=== PATIENT | female | born 1955 | race Two or more races ===

== ENCOUNTER 2017-07-13 07:13 | Emergency (ER) | payer SELFPAY ==
[2017-07-13] MEDS ORDERED: NS 1,000 ML IV ONE (07:16)
[2017-07-13] MEDS ORDERED: HYDROmorphONE/DILAUDID 1 MG/ML INJ IVP ONE (07:16)
--- NOTE | 2017-07-13 07:17 | EDPHY ---
HPI/HX/ROS/PE/MDM Narrative: CHIEF COMPLAINT: Back spasm HPI: The patient is a 62 y/o female arriving via EMS complaining of severe back spasm onset on Wednesday, about 3 days ago. She describes the sensation of "seizing" located along her lower back and worse on the left side. Her pain is sometimes worse with movement, but also present at rest. She cannot tell if it' s worse in a seated position and it's unclear if the pain ever resolves completely or not. She has been taking ibuprofen throughout the weekend with minimal relief and decided to call EMS for help this morning. EMS administered 5mg IV Valium en route with some improvement in patient's spasms, but she continues to complain of severe pain on arrival here. She denies preceding trauma, recent illness, weakness, paresthesias, incontinence, urinary symptoms, fever, or other complaints. REVIEW OF SYSTEMS: Aside from elements discussed in the HPI, a comprehensive 10-point review of systems was reviewed and is negative. PMH: Hypothyroidism, basal cell carcinoma with excision, hernia surgery SOCIAL HISTORY: Employed as a teacher. Lives in [place]. Single. PHYSICAL EXAM: General:Patient is alert, appears uncomfortable. ENT:Eyes are normal to inspection. ENT inspection normal. Neck: Normal inspection. Full range of motion. Respiratory:No respiratory distress. Breath sounds normal bilaterally. Cardiovascular: Regular rate and rhythm. Strong peripheral pulses. Normal cap refill. Abdomen:The abdomen is nontender to palpation. There are no peritoneal signs. No pulsatile mass. Back: Normal to inspection. No tenderness to palpation. Skin: Normal color. No rash. Warm and dry. Extremities: Normal appearance. Full range of motion. Neuro: Oriented x3. Normal motor function. Normal sensory function. 5/5 strength BLEs to DF, PF, knee ext and flexion. Normal LTS. No saddle anesthesia. ED Course: This is a 62 y/o female who presents with 3-days of severe back spasm. No report of recent trauma. She has a normal neurologic exam and I do not suspect acute cauda equina syndrome requiring emergent MRI imaging. Her level of pain that seems to be waxing and waning during my assessment could indicate a kidney stone or other intraabdominal process. Musculoskeletal cause also a possibility. Plan for IV, labs, UA, abdominal CT, and symptom management. 1mg IV Dilaudid and 1L IV NS administered. Reassessed patient. Her pain has improved significantly. Patient has been discussing cost of CT with her insurance for over an hour, but has finally decided she would like to proceed with it. CT Abdomen/Pelvis shows constipation and likely benign calcified splenic cyst per Dr. Pulliam, radiology. Reassessed patient and discussed findings. Exam remains benign. Patient will be discharged with Medrol script and standard back pain and constipation care instructions. Recommended follow up with back specialist in a few days. Return precautions discussed. She is comfortable with this plan. MDM: This patient presents with midline lumbar spine pain with associated back spasm , made worse with movement. We performed an extensive workup to rule out other causes of back pain, and there is no evidence of nephrolithiasis, renal mass, diverticulitis, AAA or fracture. The patient has no risk factors for epidural abscess or deep space infection. There are no signs of cauda equina or other spinal emergency. I think she is appropriate for outpatient management with steroids, muscle relaxants and pain medication, followed by close follow-up with NSG for likely MRI. She agrees with this plan. We discussed strict return precautions. - Data Points Imaging Results: Imaging Impressions Abdomen/Pelvis CT 07/13/17 07:56 Impression: 1. Constipation. 2. Likely benign 4.5-cm splenic calcification, most likely related to a cyst. Consider CT follow up in 3 to 6 months. 3. Bladder distention. 4. Additional findings as above. Findings and recommendations discussed with arcadio Perera for Dr. Pérez Mckenzie on July 13, 2017 at 1115 hours. Attention: This CT examination is specifically designed to evaluate patients who are clinically suspected of having acute obstructive uropathy. This examination does not use radiographic contrast, and as such, provides only a limited evaluation of the abdomen, pelvis and retroperitoneum. If there is further clinical suspicion for pathological conditions other than obstructive uropathy, a complete CT evaluation of the abdomen and pelvis utilizing intravenous and oral contrast should be considered. Imaging: Discussed imaging studies w/ molder pipe covering Radiologist, I viewed and interpreted images myself Laboratory Results: Laboratory Results 07/13/17 08:30 07/13/17 08:30 07/13/17 07/13/17 08:30 08:30 WBC 8.61 10^3/uL 10^3/uL (3.80-9.50) RBC 4.04 10^6/uL L 10^6/uL (4.18-5.33) Hgb 12.2 g/dL L g/dL (12.6-16.3) Hct 35.5 % L % (38.0-47.0) MCV 87.9 fL fL (81.5-99.8) MCH 30.2 pg pg (27.9-34.1) MCHC 34.4 g/dL g/dL (32.4-36.7) RDW 13.7 % % (11.5-15.2) Plt Count 234 10^3/uL 10^3/uL (150-400) MPV 9.0 fL fL (8.7-11.7) Neut % (Auto) 77.1 % H % (39.3-74.2) Lymph % (Auto) 13.9 % L % (15.0-45.0) [place] % (Auto) 7.8 % % (4.5-13.0) Eos % (Auto) 0.5 % L % (0.6-7.6) Baso % (Auto) 0.2 % L % (0.3-1.7) Nucleat RBC Rel Count 0.0 % % (0.0-0.2) Absolute Neuts (auto) 6.64 10^3/uL H 10^3/uL (1.70-6.50) Absolute Lymphs (auto) 1.20 10^3/uL 10^3/uL (1.00-3.00) Absolute Monos (auto) 0.67 10^3/uL 10^3/uL (0.30-0.80) Absolute Eos (auto) 0.04 10^3/uL 10^3/uL (0.03-0.40) Absolute Basos (auto) 0.02 10^3/uL 10^3/uL (0.02-0.10) Absolute Nucleated RBC 0.00 10^3/uL 10^3/uL (0-0.01) Immature Gran % 0.5 % % (0.0-1.1) Immature Gran # 0.04 10^3/uL 10^3/uL (0.00-0.10) Sodium 141 mEq/L mEq/L (135-145) Potassium 3.5 mEq/L mEq/L (3.5-5.2) Chloride 113 mEq/L H mEq/L (97-110) Carbon Dioxide 19 mEq/l L mEq/l (22-31) Anion Gap 9 mEq/L mEq/L (8-16) BUN 9 mg/dL mg/dL (7-23) Creatinine 0.7 mg/dL mg/dL (0.6-1.0) Estimated GFR > 60 Glucose 93 mg/dL mg/dL (70-100) Calcium 8.7 mg/dL mg/dL (8.5-10.4) Medications Given: Discontinued Medications Hydromorphone HCl (Dilaudid) 1 mg IVP EDNOW ONE Stop: 07/13/17 07:17 Last Admin: 07/13/17 07:26 Dose: 1 mg Sodium Chloride (Ns) 1,000 mls @ 0 mls/hr IV EDNOW ONE; Wide Open PRN Reason: Protocol Stop: 07/13/17 07:17 Last Admin: 07/13/17 07:25 Dose: 1,000 mls Ketorolac Tromethamine (Toradol) 30 mg IVP EDNOW ONE Stop: 07/13/17 11:00 Last Admin: 07/13/17 11:02 Dose: 30 mg General Initial Vital Signs: Initial Vital Signs Temperature (C) 36.4 C 07/13/17 07:17 Heart Rate 62 07/13/17 07:17 Respiratory Rate 18 07/13/17 07:17 Blood Pressure 119/67 07/13/17 07:17 O2 Sat (%) 98 07/13/17 07:17 O2 Delivery Mode Room Air Allergies/Adverse Reactions: No Known Allergies Allergy (Unverified 07/13/17 07:20) Home Medications: Medication Instructions Recorded Cyclobenzaprine [Flexeril] 10 mg PO TID #15 tab 07/13/17 Levothyroxine 07/13/17 methylPREDNISolone [Medrol Dose 1 each PO AD #1 ea 07/13/17 Víctor] oxyCODONE/APAP 5/325 [Percocet 5 - 10 mg PO Q4-6PRN PRN #14 tab 07/13/17 5/325] Departure - Departure Disposition: Home, Routine, Self-Care Clinical Impression: Constipation, Back pain Condition: Good Instructions: Constipation (ED), High Fiber Diet (ED), Back Pain (ED) Additional Instructions: 1. Take steroids as prescribed. 2. Use Flexeril as prescribed as needed for muscle spasm. This medication can make you drowsy. Do not use prior to driving or any activity that could put you or others at risk in case of sleepiness. 3. Use Oxycodone as prescribed when needed for severe pain. 4. Follow up with back specialist in the next 2-3 days. 5. Increase fluid and fiber intake for constipation. You can also use over-the- counter treatments such as Miralax as directed on the packaging if needed. 6. Return to the ED for any worsening of condition. There was an incidental findings of a calcified cyst in your spleen. Recommend follow up CT in 3-6 months to monitor for any changes. Referrals: [facility] [Outside] - As per Instructions Prescriptions: Cyclobenzaprine [Flexeril] 10 mg PO TID #15 tab methylPREDNISolone [Medrol Dose Víctor] 1 each PO AD #1 ea oxyCODONE/APAP 5/325 [Percocet 5/325] 5 - 10 mg PO Q4-6PRN PRN #14 tab PRN Reason: For Pain Report Scribed for: Pérez Mckenzie Report Scribed by: Dilma Constantino Date of Report: 07/13/17 Time of Report: 07:18 Physician Review and Approval Statement: Portions of this note were transcribed by an ED scribe. I personally performed the history, physical exam, and medical decision making; and confirm the accuracy of the information in the transcribed note.
[2017-07-13 07:20] VITALS: RESP 18
[2017-07-13 08:36] LABS: PLATELET COUNT 234 10^3/uL (150-400)
[2017-07-13] MEDS ORDERED: KETOROLAC 30 MG/1 ML SDV IVP ONE (10:59)
[2017-07-13] MEDS ORDERED: CYCLOBENZAPRINE 10 MG TAB PO ONE (12:08)
[2017-07-13 13:32] VITALS: BP 113/65; PULSE 69; TEMP 98.4; O2SAT 96
== END 2017-07-13 13:31 | disposition home or self-care (01) ==
LOC: EDUNIT#
DX: K59.00 Constipation, unspecified (principal); E86.9 Volume depletion, unspecified
CPT/HCPCS: 96374; J1170; J1885